=== PATIENT | male | born 1955 | race Caucasian/White ===

== ENCOUNTER 2019-12-29 06:03 | Day surgery (SDC) | payer OTHER ==
[~2019-12-29] VITALS: Ht 182.9 cm; Wt 93.1 kg
[~2019-12-29 06:03] MED LIST: ALBU90OI INH; ATEN100 PO; CHLO25B PO; CLARITIN10 MG PO; CLON.1 PO; Hytrin1 MG PO; LISI20 PO; LOSARTAN POTAS100 MG PO; SILD25T PO; VITAMIN D310 MC4 PO
--- NOTE | 2019-12-29 06:59 | NUR ---
History, Chart, Medications and Allergies reviewed before start of procedure. Patient States Post-Procedure ride home has been arranged.
--- NOTE | 2019-12-29 09:44 | NUR ---
ARRIVED FROM PACU AND RECIEVED PATIENT AND REPORT. GIVEN JUICE AND CRACKERS AT THIS TIME.
--- NOTE | 2019-12-29 10:16 | NUR ---
Discharge instructions reviewed with patient. Patient verbalizes understanding. Copy given to patient to take home. Patient States Post-Procedure ride home has been arranged. Discharged via wheelchair to private car for ride home.
== END 2019-12-29 22:42 | disposition home or self-care (01) ==
LOC: ORSCMMR 06:03 → ORD 12:45 → ORSCMMR 22:42
PROVIDERS: Surgery
PROC: 8E0W4CZ Robotic Assisted Procedure of Trunk Region, Percutaneous Endoscopic Approach (ICD-10-PCS; principal; 2019-12-29 07:30)
PROC: 0YU64JZ Supplement Left Inguinal Region with Synthetic Substitute, Percutaneous Endoscopic Approach (ICD-10-PCS; principal; 2019-12-29 07:30)
DX: K40.90 Unilateral inguinal hernia, without obstruction or gangrene, not specified as recurrent (principal); I10 Essential (primary) hypertension; J45.909 Unspecified asthma, uncomplicated; Z79.899 Other long term (current) drug therapy; Z87.891 Personal history of nicotine dependence
CPT/HCPCS: 49650; S2900; A9270-GY; C1781; J0690; J1100; J2250; J2405; J2704; J3010; J7120